=== PATIENT | male | born 1955 | race Caucasian/White ===

== ENCOUNTER → 2016-10-25 | Day surgery (SDC) | payer OTHER ==
[2016-10-25 07:39] LABS: HCT 47.6 % (42.0-52.0); HGB 15.9 g/dl (13.2-18.0); MCH 29.7 pg (25.0-31.0); MCHC 33.4 g/dL (32.0-36.0); MCV 88.8 fL (78.0-100.0); MPV 9.9 fL (6.0-9.5); RBC 5.36 M/uL (4.70-6.00); RDW 13.4 % (11.5-14.0); WBC 5.7 K/uL (4.0-10.5)
[2016-10-25 08:06] LABS: INR 1.06 (0.9-1.2); PROTHROMBIN TIME 13.4 SECONDS (11.7-14.0); PTT 30.1 SECONDS (23.2-31.4)
[2016-10-25 08:25] LABS: ALBUMIN 4.1 g/dL (3.4-4.8); BILIRUBIN - TOTAL 0.7 mg/dL (0.1-1.0); CREATININE 0.8 mg/dL (0.7-1.2); POTASSIUM 4.5 mmol/L (3.5-5.1); TOTAL PROTEIN 6.1 g/dL (6.4-8.3)
== END | disposition home or self-care (01) ==
LOC: FAS 07:41
PROVIDERS: Surgery
DX: K80.10 Calculus of gallbladder with chronic cholecystitis without obstruction (principal); K21.9 Gastro-esophageal reflux disease without esophagitis; M19.90 Unspecified osteoarthritis, unspecified site; F41.9 Anxiety disorder, unspecified; F32.9 Major depressive disorder, single episode, unspecified; Z79.82 Long term (current) use of aspirin; Z98.890 Other specified postprocedural states; Z79.899 Other long term (current) drug therapy
CPT/HCPCS: 36415; 74300; 80053; 85610; 85730; 88304; J1100; J1170; J2405; J2704; J2710; J3010; Q9962